=== PATIENT | male | born 1960 | race Caucasian/White ===

== ENCOUNTER 2016-06-25 23:32 | Emergency (ER) | payer MEDICARE, OTHER ==
--- NOTE | ~2016-06-25 | CR72 ---
[facility] A Service of [facility] RADIOLOGY TEXT RESULTS PATIENT: ROSSY MIMS LOCATION: [facility] : 56 UNIT #: [id number] AGE: [address]: Jose Angulo DO SEX: M ORDER DR: [id number] [facility] [address] [place], [place] [address] [id number] E MR#: [id number] Acc #: [id number] NAME: ROSSY MIMS : 1960 SEX: M STUDY DATE/TIME: 06/25/2016 23:58 UNIT: [facility] ROOM: STUDY DESCRIPTION: CR Chest Single View Portable Attending Physician: Jose Angulo D.O. Ordering Physician: Jose Angulo D.O. Primary Care Physician: Stef Morrow M.D. MEDICAL IMAGING REPORT This report is preliminary unless electronic signature is present EXAM Frontal chest 06/25/2016 INDICATIONS 56-year-old male with chest pain, short of air, rib pain, cough. Symptoms 3 weeks and getting worse. History of colon cancer and , hypertension, tobacco abuse, COPD, diabetes. TECHNIQUE Frontal chest was performed. COMPARISONS: 04/27/2016 FINDINGS cardiac silhouette is within normal limits. The vascularity is normal. Lungs are clear. There is pulmonary hyperinflation and old healed granulomatous disease. No pneumothorax. IMPRESSION 1. COPD. No definite superimposed active disease. Dictated by... Tyson Daniel M.D. THIS IS AN ELECTRONICALLY VERIFIED REPORT Tyson Daniel M.D. at 06/26/2016 9:53 PM LULY/enrike TD: 06/26/2016 07:39 JOB #: [id number] [facility] A Service [facility] RADIOLOGY TEXT RESULTS PATIENT: ROSSY MIMS LOCATION: [facility] : 56 UNIT #: [id number] AGE: [address]: Hottman,Jose M DO SEX: M ORDER DR: MEDICAL IMAGING REPORT Page 1 of 1 COPY
--- NOTE | ~2016-06-25 | EKG ---
PATIENT: ROSSY MIMS UNIT #: [id number] Ventricular Rate: 86 BPM Atrial Rate: 86 BPM P-R Interval: 114 ms QRS Duration: 82 ms Q-T Interval: 372 ms QTC Calculation(Bezet): 445 ms P [place]: 60 degrees Calculated R [place]: 9 degrees Calculated T [place]: 53 degrees Diagnosis Line: Sinus rhythm with Premature atrial complexes Diagnosis Line: Otherwise normal ECG Diagnosis Line: When compared with ECG of 27-APR-2016 14:11, Diagnosis Line: Premature atrial complexes are now Present Diagnosis Line: Confirmed by ANDREW NEW MD ([id number]) on 06/26/2016 Diagnosis Line: 9:20:29 PM INTERPRETING MD: VIRGEN ENGLISH
[~2016-06-25 23:32] MED LIST: ALBUTEROL0.83 MG/ML INH; ALBUTEROL17 GM INH; ALBUTEROL2.5 MG/0.5 IH; AUGMENTIN PO; AZITHROMYCIN250 MG PO; BENADRYL25 MG PO; BENTYL20 M1 PO; BENZONATATE PO; BROMFED DM COU118 ML PO; COUMADIN PO; COUMADIN5 MG PO; COUMADIN7.5 MG PO; DARVOCET-N 1001 TAB PO; DOXYCYCLINE HY100 M1 PO; DOXYCYCLINE150 MG PO; FAMOTIDINE PO; GABAPENTIN300 M2; GLUCOMETER ELIT1 KIT MC; GLYBURIDE PO; GLYBURIDE2.5 M1 PO; GLYBURIDE2.5 MG PO; HYDROCODON-ACE1 EAC9 PO; LANSOPRAZOLE30 M2; LANSOPRAZOLE30 M3 PO; LANTUS100 UNITS/; LEVEMIR SUBQ; LISINOPRIL10 MG PO; LISINOPRIL20 MG PO; LOVENOX40 MG/0.4 INJ; METFORMIN HCL1000 M1 PO; METFORMIN HCL500 M1 PO; METFORMIN PO; MICRONASE5 M1 PO; NEURONTIN300 MG PO; PREDNISONE PO; PREDNISONE10 MG PO; PREDNISONE10 MG/DOSE PO; PROAIR HFA8.5 GM IH; PROAIR HFA8.5 GM INH; SIMETHICONE125 M1 PO; SYMBICORT 16010.2 GM INH; SYMBICORT INH; SYMBICORT80 INH; TAMIFLU75 M1 PO; TUDORZA PRESS400 MCG IH; TUSSIONEX PENN473 ML PO; TYLENOL325 M1 PO; VIBRAMYCIN100 M1 PO; WALGREENS PHARMACY; ZOFRAN ODT4 MG PO
[2016-06-25 23:51] LABS: BASOPHIL# 0.1 X10e3 (0-0.3); BASOPHIL% 1.2 % (0-2.5); EOSINOPHIL# 0.2 X10e3 (0-0.7); EOSINOPHIL% 3.4 % (0.0-7.0); HEMATOCRIT 45.7 % (38.0-50.0); HEMOGLOBIN 15.3 gm/dL (13.0-16.0); LYMPHOCYTE# 2.3 X10e3 (1.0-3.5); LYMPHOCYTE% 31.4 % (17.0-45.0); MEAN CELL VOLUME 87.9 FL (83-96); MEAN CORPUSCULAR HEMOGLOBIN 29.4 PG (28-34); MEAN CORPUSCULAR HGB CONC 33.5 g/dL (30-36); MEAN PLATELET VOLUME 7.8 FL (6.5-11.5); MONOCYTE# 0.5 X10e3 (0-1.0); MONOCYTE% 7.1 % (3.0-12.0); NEUTROPHIL# 4.1 X10e3 (1.5-7.1); NEUTROPHIL% 56.9 % (40-75); PLATELET COUNT 201 X10e3 (140-420); RED BLOOD COUNT 5.19 X10e (3.90-5.60); RED CELL DISTRIBUTION WIDTH 13.9 % (11.0-15.5); WHITE BLOOD COUNT 7.3 X10e3 (4.0-10.5)
[2016-06-25 23:52] LABS: DIFF IND NO
[2016-06-26 00:04] LABS: INR 2.6; PARTIAL THROMBOPLASTIN TIME 35.1 SECONDS (23.5-31.3); PROTHROMBIN TIME (PATIENT) 28.8 SECONDS (9.6-11.5)
[2016-06-26 00:12] LABS: INFLUENZA A NEG (NEG); INFLUENZA B NEG (NEG)
[2016-06-26 00:13] LABS: ALBUMIN SERUM 3.7 g/dL (3.5-5.0); BILIRUBIN, DIRECT 0.1 mg/dL (0.0-0.2); BILIRUBIN,TOTAL 0.1 mg/dL (0.2-2.0); CALCIUM SERUM 8.7 mg/dL (8.4-10.2); CREATININE SERUM 0.8 mg/dL (0.6-1.4); GLOM FILT RATE Estimated 98.5 mL/min (>60); POTASSIUM 3.8 mmol/L (3.5-5.1); PROTEIN TOTAL SERUM 6.3 g/dL (6.0-8.3)
[2016-06-26 04:08] LABS: %MB 1.5 % (0.0-4.0); MB 2.6 ng/ml
== END 2016-06-26 04:46 | disposition home or self-care (01) ==
LOC: CED 23:32
PROVIDERS: Emergency Medicine
DX: R07.9 Chest pain, unspecified (principal); M54.9 Dorsalgia, unspecified; R06.02 Shortness of breath; J44.9 Chronic obstructive pulmonary disease, unspecified; I10 Essential (primary) hypertension; Z87.442 Personal history of urinary calculi; Z79.01 Long term (current) use of anticoagulants; F17.200 Nicotine dependence, unspecified, uncomplicated; Z88.7 Allergy status to serum and vaccine; Z79.899 Other long term (current) drug therapy
CPT/HCPCS: 36415; 71010; 80048; 80076; 82550; 82553; 84484; 85025; 85610; 85730; 87804; 93005; 94640; 96374; 99284; J2930

== ENCOUNTER → 2016-10-03 | Outpatient (CLI) | payer MEDICARE ==
--- NOTE | ~2016-10-03 | CT113 ---
[facility] A Service of [facility] RADIOLOGY TEXT RESULTS PATIENT: JIMMIE MIMS LOCATION: [facility] : 56 UNIT #: [id number] AGE: [address]: Jimmie Graves MD SEX: M ORDER DR: [id number] [facility] [address] [place], [place] [address] [id number] O MR#: [id number] Acc #: [id number] NAME: JIMMIE MIMS. : 1960 SEX: M STUDY DATE/TIME: 10/03/2016 11:19 UNIT: [facility] ROOM: STUDY DESCRIPTION: CT Sinuses Wo Contrast Attending Physician: Jimmie Graves III, M.D. Referring Physician: Jimmie Graves III, M.D. Ordering Physician: Jimmie Graves III, M.D. Primary Care Physician: Stef Morrow M.D. MEDICAL IMAGING REPORT This report is preliminary unless electronic signature is present EXAM Sinus CT no contrast 10/03/2016 [address]URE Axial unenhanced sinus CT with multiplanar reformats. This CT exam was performed with one or more of the following radiation dose reduction techniques: automatic exposure control, adjustment of mA and/or kV according to patient size, and iterative reconstruction. COMPARISON STUDIES None CLINICAL HISTORY History of deviated nasal septum with 1 year history of recurrent sinusitis with congestion and drainage. FINDINGS The frontal sinuses are essentially not pneumatized. The ethmoid air cells are normally pneumatized and there is slight anterior ethmoid mucosal thickening bilaterally. The sphenoid sinus is small and there is bilateral sphenoid mucosal thickening. The maxillary sinuses are normally pneumatized. There is a prominent right maxillary floor mucous retention cyst at least 2.5 cm in size. There is some mild mucosal thickening in both maxillary sinuses in the region of the infundibulum slightly narrowing it on the right and narrowing it on the left. [facility] A Service of [facility] RADIOLOGY TEXT RESULTS PATIENT: JIMMIE MIMS LOCATION: [facility] : 56 UNIT #: [id number] AGE: [address]: Jimmie Graves MD SEX: M ORDER DR: There is rightward septal deviation and spur. There is no bone erosion or destruction or air-fluid level. The soft tissues are unremarkable. IMPRESSION No air-fluid levels or bony thickening or erosion. There are some areas of scattered sinus mucosal thickening as well as a right maxillary retention cyst but no acute appearing abnormality is seen. Dictated by... Rome Gil M.D. THIS IS AN ELECTRONICALLY VERIFIED REPORT Rome Gil M.D. at 10/09/2016 10:36 AM LISSA/veronika TD: 10/03/2016 16:29 JOB #: [id number] MEDICAL IMAGING REPORT Page 1 of 1 COPY
== END | disposition home or self-care (01) ==
LOC: CCAT 10:41
DX: J34.2 Deviated nasal septum (principal)
CPT/HCPCS: 70486